=== PATIENT | male | born 1950 | race Caucasian/White ===

== ENCOUNTER 2022-10-16 08:53 | Emergency (ER) | payer MEDICARE, BC ==
[2022-10-16] MEDS ORDERED: predniSONE 20 MG TAB ONE (09:28)
[2022-10-16] MEDS ORDERED: Cephalexin 250 MG CAP ONE (09:28)
== END 2022-10-16 09:35 | disposition home or self-care (01) ==
LOC: NAV ERS 08:53
DX: M70.22 Olecranon bursitis, left elbow (principal); E78.00 Pure hypercholesterolemia, unspecified; Z79.899 Other long term (current) drug therapy; Z79.01 Long term (current) use of anticoagulants; I48.91 Unspecified atrial fibrillation
CPT/HCPCS: 99283; J7512